=== PATIENT | male | born 1970 | race Caucasian/White ===

== ENCOUNTER 2021-11-26 17:19 | Outpatient (REF) | payer OTHER, SELFPAY ==
[2021-11-26 14:48] LABS: ALT 44 U/L (16-63); AST 25 U/L (15-37); Albumin 4.3 g/dL (3.4-5.0); Alkaline Phosphatase 92 U/L (46-116); Anion Gap 10.2 mmol/L (3-11); BUN 17 mg/dL (7-18); Bilirubin, Total 0.4 mg/dL (0.2-1.0); CO2 25.8 mmol/L (21.0-32.0); CREATININE 0.8 mg/dL (0.70-1.30); Calcium 9.3 mg/dL (8.5-10.1); Calculated LDL 155 mg/dL (<100); Chloride 103 mmol/L (98-107); Cholesterol 236 mg/dL (<200); Glucose 106 mg/dL (74-106); HDL Cholesterol 46 mg/dL (40-60); Potassium 4.3 mmol/L (3.5-5.1); Sodium 139 mmol/L (136-145); Total Protein 7.3 g/dL (6.4-8.2); Triglyceride 179 mg/dL (<150)
== END 2021-11-26 17:20 | disposition home or self-care (01) ==
LOC: NCHCN 17:19
PROVIDERS: Visit Provider Nurse Practitioner Family
DX: I10 Essential (primary) hypertension (principal); E78.5 Hyperlipidemia, unspecified
CPT/HCPCS: 80053; 80061

== ENCOUNTER 2024-06-12 13:51 | Outpatient (REF) | payer OTHER, SELFPAY ==
--- OUTSIDE RECORDS SUMMARY | 2024-06-12 13:52 | XMS_ITS | Referral Summary ---
Author Organization [facility] Address [address] [place] [address] Care Team Providers Care Shingles Roofer Name Role Phone Nila Moses MD Primary Care Provider [phone] Social History Tobacco Use Types Packs/Day Years Used Date Smoking Tobacco: Never Assessed Sex and Gender Information Value Date Recorded Sex Assigned at Not on file Legal Sex Male 18:25 EST Gender Identity Not on file Sexual Orientation Not on file Plan of Treatment Not on file Care Teams Shingles Roofer Relationship Specialty Start Date End Date Nila Moses MD [facility] [address] [address] PCP - General 05/13/15
--- OUTSIDE RECORDS SUMMARY | 2024-06-12 13:52 | XMS_ITS | Clinical Summary ---
Author Organization [facility] Address [address] [place] [address] Care Team Providers Care First Breaker Feeder Name Role Phone Nila Moses MD Primary Care Provider Social History Tobacco Use Types Packs/Day Years Used Date Smoking Tobacco: Never Assessed Sex and Gender Information Value Date Recorded Sex Assigned at Not on file Legal Sex Male 18:25 EST Gender Identity Not on file Sexual Orientation Not on file Plan of Treatment Health Maintenance Due Date Last Done Comments Hepatitis C Screen 1970 Hepatitis B Vaccine (1 of 3 - 19+ 3-dose series) 12/05 COVID-19 Vaccine ( season) 2024 Care Teams First Breaker Feeder Relationship Specialty Start Date End Date Nila Moses MD [address] [address] PCP - General 05/13/15
--- OUTSIDE RECORDS SUMMARY | 2024-06-12 13:53 | XMS_ITS ---
Author Organization Unknown Address [address] [place] [phone] Phone Care Team Providers Care Apprentice Photographer Name Role Phone LISSA Ortiz Attending Unavailable Results [facility]* - Greta ect Date/Time: 10/27/2021 17:30 [facility] ID: [id number] [address] [place] [address], [phone] LOINC: 25922-5 Test Value Unit Reference Range Code Code System Flag Tier- STAFF EXPOSURE 52301-3 LOINC SARS COV2 RNA: NEGATIVE REFERENCE RAN GE: NEGAT 68451-8 LOINC Social History Type Status Start Date End Date Code Code Syst em Smoking History Never smoker (Never Smoked) 498113829 SNOMED CT Sex Male Hospital Discharge Instructions Should you have any questions prior to discharge, please contact a member of your healthcare team. If you have left the hospital and have any questions, please contact your primary care physician. Reason For Referral No Data Found Allergies and Adverse Reactions Allergy Substance Reaction Severity Start Date Concern Status Co de Code System No Known Drug Allergies Active 862280795 SNOMED-CT Plan of Treatment No Data Found Encounters Encounter Diagnosis Start Date Code Code Sys tem Exposure to SARS-CoV-2 10/27/2021 478657953 SNOME D-CT Personal Care Team Section Performer Name Performer Role Active Date Inactive Da te
--- OUTSIDE RECORDS SUMMARY | 2024-06-12 13:53 | XMS_ITS | Encounter Summary ---
Author Organization [facility] Address [address] [place] [address] Care Team Providers Care Commercial Sales Representative Name Role Phone Unavailable Primary Care Provider Unavailabl e Encounter Details Date Type Department Care Team (Late st Contact Info) Description 12/02/2006 Before PRISM Converted Visit (Maple) [facility] - Maple conversion [address] [place] [address] Mg Solis MD [address] [place] [phone] Social History Tobacco Use Types Packs/Day Years Used Date Smoking Tobacco: Never Assessed Sex and Gender Information Value Date Recorded Sex Assigned at Not on file Legal Sex Male 18:25 EST Gender Identity Not on file Sexual Orientation Not on file documented as of this encounter Progress Notes * Mg Solis MD - 05/04/20092040 EST DIVISION OF OTOLARYNGOLOGY December 06, 2006 Dr. [facility] [address] [address] Dear Chas: Thank you for asking me to evaluate Mr. Preston in consultation regarding traumatic perforation of the left tympanic membrane secondary to over insertion of a Q-Tip. He reported acute pain with twodays of dizziness which has since resolved. He has persistent subjective hearing loss. No drainage or other complaints at the time. He is otherwise a very healthy nonsmoker.His only other complaint is ObstructiveSleep Apnea presently managed with nasal Cpap.This has not been well tolerated. Examination reveals a moderately large central perforation of the left tympanic membrane. The flap had actually extended along the lateral surface of the tympanic membrane, and I was able to reposition this more medially in combination debriding some accumulated debris. The middle ear was clear without infection and there was no obvious evidence of ossicular damage. His audiogram revealed a mild flat conductive hearing loss with a type B flat tympanogram with large volume consistent with perforation of the tympanic membrane. Concurrently I had Dr. Roberts evaluate this for future reference. Impression: 1. Traumatic perforation of left tympanic membrane. I am hopeful that this will close spontaneously. 2. Obtructive sleep Apnea Syndrome. Intolerant of Nasal Cpap. Treatment Plan: 1. Water protection. He has ear plugs for this. 2. Follow up visit with Dr. Roberts in three months. If the perforation does not close spontaneously, then tympanoplasty will be necessary and Dr. Roberts would make arrangements as indicated. 3. [place] appointment for evaluation surgical management ANTHONY. I appreciate the opportunity to participate in this patients care. Please let me know if you have any questions or concerns. Sincerely, Signed by Mg Solis MD 12/12/2006 09:14 Noemy Villa MD Mg Solis MD -Mg Solis MD -laila Job ID: [id number] Doc ID: [id number] cc: MD Nila Reyez MD documented in this encounter Plan of Treatment Not on file documented as of this encounter Visit Diagnoses Not on filedocumented in this encounter
--- OUTSIDE RECORDS SUMMARY | 2024-06-12 13:53 | XMS_ITS | Encounter Summary ---
Author Organization [facility] Address [address] [place] [address] Care Team Providers Care Construction Job Cost Estimator Name Role Phone Unavailable Primary Care Provider Unavailabl e Encounter Details Date Type Department Care Team (Late st Contact Info) Description 03/10/2007 10:13 EDT Hospital Encounter [facility] [address] [place] [address] Mg Solis MD [address] [place] [address] Social History Tobacco Use Types Packs/Day Years Used Date Smoking Tobacco: Never Assessed Sex and Gender Information Value Date Recorded Sex Assigned at Not on file Legal Sex Male 18:25 EST Gender Identity Not on file Sexual Orientation Not on file documented as of this encounter Plan of Treatment Not on file documented as of this encounter Visit Diagnoses Not on filedocumented in this encounter
--- OUTSIDE RECORDS SUMMARY | 2024-06-12 13:53 | XMS_ITS | Encounter Summary ---
Author Organization [facility] Address [address] [place] [address] Care Team Providers Care Sunday School Missionary Name Role Phone Unavailable Primary Care Provider Unavailabl e Encounter Details Date Type Department Care Team (Late st Contact Info) Description 01/20/2006 Results Only [facility] Employee [facility] - Main [address] [address] Health, Nurse Employee Social History Tobacco Use Types Packs/Day Years Used Date Smoking Tobacco: Never Assessed Sex and Gender Information Value Date Recorded Sex Assigned at Not on file Legal Sex Male 18:25 EST Gender Identity Not on file Sexual Orientation Not on file documented as of this encounter Plan of Treatment Not on file documented as of this encounter Procedures Procedure Name Priority Date/Time Associated Diagnosis Comments MUMPS AB Routine 01/20/2006 16:01 EDT MEASLES IGG AB Routine 01/20/2006 16:01 EDT RUBELLA IGG ANTIBODY Routine 01/20/2006 16:01 EDT documented in this encounter Results * RUBELLA IGG ANTIBODY (01/20/2006 16:01 EDT) Rubella IgG Ab Antibody detected Assayed utilizing the [facility] Immulite 2500. Values may vary with other methods. [facility] 01/20/2006 16:0 1 EDT 01/20/2006 16:06 EDT Nurse Employee Health CHEMISTRY & BLOOD GAS ORDE RABLES Final Result Performing Organization Address [facility] Co de Phone Number [facility] [address] [place] [address] * MUMPS AB (01/20/2006 16:01 EDT) Mumps Ab Antibody not detected Assayed by [facility] [place], [place] [facility] 01/20/2006 16:0 1 EDT 01/20/2006 16:[address] [facility] HISTORICAL LAB FOR SQ LOAD Final Result Performing Organization Address [facility] de Phone Number [facility] [address] [place] [address] * RUBEOLA IGG ANTIBODY (01/20/2006 16:01 EDT) Rubeola IgG Ab Antibody detected [facility] 01/20/2006 16:0 1 EDT 01/20/2006 16:06 EDT Nurse [facility] IMMUNOLOGY AND SEROLOGY OR DERABLES Final Result Performing Organization Address [facility] Co de Phone Number [facility] [address] [place] [address] documented in this encounter Visit Diagnoses Not on filedocumented in this encounter
--- OUTSIDE RECORDS SUMMARY | 2024-06-12 13:53 | XMS_ITS | Encounter Summary ---
Author Organization [facility] Address [address] [place] [place] [address] Care Team Providers Care Care Transition Mgr Name Role Phone Nila Moses MD Primary Care Provider [phone] Encounter Details Date Type Department Care Team (Late st Contact Info) Description 12/11/2019 Lab Requisition [facility] Pathology & Laboratory Medicine - [address] [address] Outr Resulting Lab, Provider Social History Tobacco Use Types Packs/Day [...] Procedure Name Priority Date/Time Associated Diagnosis Comments ZZCOVID-19 TEST [facility] PCR Today 12/11/2019 18:11 EDT COVID-19 TESTING Routine 12/11/2019 18:1 1 EDT documented in this encounter Results * COVID-19 TEST [facility] PCR (12/11/2019 18:11 EDT) Swab ENTIRE NASOPHARYNX / Unknown 12/11/2019 18:11 EDT 12/11/2019 21:54 EDT us Provider Outr Resulting Lab MICROBIOLOGY - GENER AL ORDERABLES Final Result [facility] [address] [place] [address] * COVID-19 TESTING (12/11/2019 18:11 EDT) COVID-19 rt-PCR Result Negative Negative 12/12/2019 12:21 EDT [facility] Comment: This test has not been FDA cleared or approved. This test has been authorized by FDA under an EUA for use by authorized laboratories. This test has been authorized only for detection of nucleic acid from 2019-nCoV, not for any other viruses or pathogens. This test is only authorized for the duration of the declaration that circumstances exist justifying the authorization of emergency use of in vitro diagnostic tests for detection and/or diagnosis of 2019-nCoV under section 564(b)(1) of Act, 21 U.S.C ?? 360bbb-3(b) (1), unless the authorization is terminated or revoked sooner. Negative results do not preclude 2019-nCoV infection and should not be used as the sole basis for treatment or other patient management decisions. Negative results must be combined with clinical observations, patient history, and epidemiological information. Performed on the needmadeher Fusion instrument Performing Lab [facility] 12/12/2019 12:21 EDT [facility] Swab 12/11/2019 18:1 1 EDT 12/11/2019 21:54 EDT us Provider Outr Resulting Lab MICROBIOLOGY - GENER AL ORDERABLES Final Result [facility] [address] [place] [address] documented in this encounter Visit Diagnoses Not on filedocumented in this encounter Care Teams Care Transition Mgr Relationship Specialty Start Date End Date Nila Moses MD [address] [address] PCP - General 05/13/15 documented as of this encounter
--- OUTSIDE RECORDS SUMMARY | 2024-06-12 13:53 | XMS_ITS | Encounter Summary ---
Author Organization [facility] Address [address] [place] [address] Care Team Providers Care Laser Beam Color Scanner Operator Name Role Phone Unavailable Primary Care Provider Unavailabl e Encounter Details Date Type Department Care Team (Late st Contact Info) Description 03/10/2007 Before PRISM Converted Visit (Maple) [facility] - Maple conversion [address] [place] [address] Mg Solis MD [address] [place] [phone] Social History Tobacco Use Types Packs/Day Years Used Date Smoking Tobacco: Never Assessed Sex and Gender Information Value Date Recorded Sex Assigned at Not on file Legal Sex Male 18:25 EST Gender Identity Not on file Sexual Orientation Not on file documented as of this encounter Progress Notes * Mg Solis MD - 05/07/2009 1022 EST DIVISION OF OTOLARYNGOLOGY PROGRESS/FOLLOWUP NOTE - 03/10/2007 PROBLEM Obstructive sleep apnea syndrome. 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 Severe obstructive sleep apnea was confirmed on a polysomnogram of October 05, 2001 revealing of 45 with documented oxygen desaturation. Failed trial of nasal CPAP. Associated symptoms of fragmented sleep with self-wakening, poor quality sleep feeling unrested, daytime hypersomnolence. Despite this, he remains gainfully employed and very active. Despite weight loss secondary to combined physical activity with dietary modification, he continuesto be symptomatic. He had a very adequate trial of nasal CPAP which was not tolerated. He is requesting consideration for surgical management. PAST MEDICAL HISTORY Nil chronic. FAMILY HISTORY Negative for snoring/ANTHONY. Occupation: Emergency room nurse. Nonsmoker. Alcohol: Minimal social. MEDICATIONS Ibuprofen p.r.n. REVIEW OF SYSTEMS Denies shortness of breath, coughing, or wheezing. No reflux symptoms. Frequent headaches. OBJECTIVE Sgakhe-wrvm-gttc-old gentleman in no acute distress. He appears normal weight for height. Both earsare clear. Nasal cavity: Central midline septum. Normal turbinates. Patent airway bilaterally. Oralcavity reveals underbite with high arch palate. Oropharynx is post-tonsillectomy status. The soft palate is low lying. Uvula elongated. Tongue is retrodisplaced. PROCEDURE Flexible fiberoptic nasolaryngoscopy performed through the right nares. The retropalatal space was narrowed. The pharynx revealed significant narrowing of the lateral wall secondary to very prominentposterior tonsillar pillars which are actually noted to extend into the hypopharynx. The tongue base was retrodisplaced with an estimated posterior airway space of 7 to 8 mm. Siu maneuver on the first effort demonstrated 100% obstruction with combined collapse of lateral oropharynx, hypopharynx,and tongue base touching the posterior pharyngeal wall. IMPRESSION Severe obstructive sleep apnea syndrome. This gentleman does not have any identifiable modifiable lifestyle issues including obesity, sedatives, or alcohol habits. Obstruction is identified at the level of the oropharynx secondary to low lying soft palate, elongated uvula as well as a prominent posterior tonsillar pillars. Also, hypopharynx with anatomical narrowing. 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 DISCUSSION/RECOMMENDATIONS I reviewed my impressions and findings. I have suggested consideration for a UPPP in combination with orthognathic surgery which may include mandibular or bimaxillary advancement surgery pending oralsurgery evaluation. TREATMENT DECISION I have suggested proceeding with a consultation with Dr. Avila regarding evaluation as follows: 1. Oral advancement appliance. 2. Mandibular versus bimaxillary advancement surgery. 3. Staged surgery, either UPPP followed by orthognathic surgery versus reverse order. 4. The patient will attend consultation with a copy of his polysomnogram report. Signed by Mg Solis MD 03/16/2007 13:09 Noemy Villa MD Mg Solis MD -Mg Solis MD -HAL Job ID: [id number] Doc ID: [id number] cc: MARCELINA Carvalho MD documented in this encounter Plan of Treatment Not on file documented as of this encounter Visit Diagnoses Not on filedocumented in this encounter
--- OUTSIDE RECORDS SUMMARY | 2024-06-12 13:53 | XMS_ITS ---
Author Organization Unknown Address [address] [place] [phone] Phone Care Team Providers Care Operating Room Technologist Name Role Phone LISSA Ortiz Attending Unavailable Results [facility] - Greta ect Date/Time: 06/28/2021 10:50 [facility] ID: [id number] [address] [place] [address], [id number] LOINC: 15956-7 Test Value Unit Reference Range Code Code System Flag Tier- STAFF EXPOSURE SARS COV2 RNA: NEGATIVE REFERENCE RAN GE: NEGAT 21955-6 LOINC Social History Type Status Start Date End Date Code Code Syst em Smoking History Never smoker (Never Smoked) 947531712 SNOMED CT Sex Male Hospital Discharge Instructions [...] Code System No Known Drug Allergies Active 922228673 SNOMED-CT Plan of Treatment No Data Found Encounters Encounter Diagnosis Start Date Code Code Sys tem Exposure to SARS-CoV-2 06/28/2021 333161021 SNOME D-CT Personal Care Team Section Performer Name Performer Role Active Date Inactive Da wendy
--- OUTSIDE RECORDS SUMMARY | 2024-06-12 13:54 | XMS_ITS ---
Author Organization Unknown Address [address] [place] [address] [phone] Phone Care Team Providers Care Technical Support Analyst Name Role Phone ALECRUZSUSHANT HERNANDEZ Attending Unavaila steffanie DOYLE Primary Unavailable Social History Type Status Start Date End Date Code Code Syst em Smoking History Never smoker (Never Smoked) 384760918 SNOMED CT Sex Male Hospital Discharge Instructions [...] Code System No Known Drug Allergies Active 189569389 SNOMED-CT Plan of Treatment No Data Found Encounters Encounter Diagnosis Start Date Code Code Sys tem Obstructive sleep apnea (adult) (pediatric) 12/17/2020 SNOMED-CT Personal Care Team Section Performer Name Performer Role Active Date Inactive Da wendy
--- OUTSIDE RECORDS SUMMARY | 2024-06-12 13:54 | XMS_ITS ---
Author Organization Unknown Address [address] [place] [phone] Phone Care Team Providers Care Radiator Tester Name Role Phone LATA Baeza Attending Unavailable CIARA HANK Primary Unavailable Results HEMOGLOBIN A1C* - Collect Da te/Time: 01/07/2023 07:52 [facility] ID: [id number] [address] [place] [address], [address] LOINC: 4548-4 Test Value Unit Reference Range Code Code System Flag Hgb A1c 5.4 % L=3.8 H=5.7 4548-4 LOINC MEAN BLOOD GLUCOSE 94 mg/dL 00573-1 LOINC Social History Type Status Start Date End Date Code Code Syst em Smoking History Never smoker (Never Smoked) 148094856 SNOMED CT Sex Male Hospital Discharge Instructions [...] Code System No Known Drug Allergies Active 367186300 SNOMED-CT Plan of Treatment No Data Found Encounters Encounter Diagnosis Start Date Code Code Sys tem Hyperlipidemia, unspecified 01/07/2023 SNOMED-CT Personal Care Team Section Performer Name Performer Role Active Date Inactive Da te
--- OUTSIDE RECORDS SUMMARY | 2024-06-12 13:54 | XMS_ITS ---
Author Organization Unknown Address [address] [place] [phone] Phone Care Team Providers Care Dust Operator Name Role Phone SAM Martins Attending Unavailable CIARA HANK Primary Unavailable Results LIPID PANEL* - Collect Date/ Time: 01/07/2023 07:52 [facility] ID: [id number] [address] [place] [address], [phone] LOINC: Test Value Unit Reference Range Code Code System Flag FASTING STATUS: FASTING CHOLESTEROL 200 mg/dL L=0 H=200 2093-3 LOINC TRIGLYCERIDES 169 mg/dL L=63 H=313 2571-8 LOINC HDL 43 mg/dL L=28 H=63 2085-9 LOINC non-HDL-C 157 mg/dL L=0 H=160 50451-8 LOINC LDL (CALC) 123 mg/dL L=0 H=130 43059-3 LOINC % HDL 21.5 % Chol/HDL Ratio 4.7 L=0.0 H=4.9 9830-1 LOINC CHD Relative Risk 0.9 x Avg L=0.0 H=1.0 LDL/HDL Ratio 2.9 L=0.0 H=3.5 45976-9 LOINC CHD Relative Risk. 0.8 x Avg L=0.0 H=1.0 COMPREHENSIVE METABOLIC PANE L (CMP) - Collect Date/Time: 01/07/2023 07:52 [facility] ID: [id number] [address] [place] [address], [phone] LOINC: 25654-9 Test Value Unit Reference Range Code Code System Flag GLUCOSE 95 mg/dL L=70 H=116 2345-7 LOINC BUN 16 mg/dL L=6 H=25 3094-0 LOINC CREATININE 0.82 mg/dL L=0.67 H=1.17 2160-0 LOINC SODIUM SERUM 139 mmol/L L=136 H=145 2951-2 LOINC POTASSIUM SERUM 4.1 mmol/L L=3.4 H=5.2 2823-3 LOINC CHLORIDE SERUM 104 mmol/L L=96 H=110 2075-0 LOINC CARBON DIOXIDE (CO2) 25 mmol/L L=22 H=34 2028-9 LOINC ANION GAP 10.3 mmol/L 72764-7 LOINC CALCIUM SERUM 9.0 mg/dL L=8.2 H=10.2 26608-4 LOINC BILIRUBIN TOTAL 0.4 mg/dL L=0.0 H=1.3 1975-2 LOINC ALK. PHOS. 79 U/L L=46 H=116 6768-6 LOINC SGOT (AST) 24 U/L L=15 H=37 1920-8 LOINC SGPT (ALT) 44 U/L L=12 H=78 1742-6 LOINC TOTAL PROTEIN 7.2 gm/dL L=6.0 H=8.0 2885-2 LOINC ALBUMIN 3.8 gm/dL L=3.4 H=5.0 1751-7 LOINC AGE 50 years eGFR (non-Afr.Amer.) 99 mL/min 36315-0 LOINC eGFR (Afr-Malawian) 120 mL/min 59727-4 LOINC CORRECTED Social History Type Status Start Date End Date Code Code Syst em Smoking History Never smoker (Never Smoked) 985831436 SNOMED CT Sex Male Hospital Discharge Instructions [...] Code System No Known Drug Allergies Active 853965101 SNOMED-CT Plan of Treatment No Data Found Encounters Encounter Diagnosis Start Date Code Code Sys tem Hyperlipidemia, unspecified 01/07/2023 SNOMED-CT Personal Care Team Section Performer Name Performer Role Active Date Inactive Da wendy
--- OUTSIDE RECORDS SUMMARY | 2024-06-12 13:54 | XMS_ITS ---
Author Organization Unknown Address [address] [place] [phone] Phone Care Team Providers Care Dedicated Driver Name Role Phone LISSA Ortiz Attending Unavailable CIARA HANK [facility] - Co llect Date/Time: 03/20/2023 18:14 [facility] ID: [id number] [address] [place], [place], [phone] LOINC: 58173-1 Test Value Unit Reference Range Code Code System Flag COVID POSITIVE Normal: Negative 53479-7 LOINC A SOURCE= Anterior nasal 36046-1 LOINC Tier- STAFF SYMPTOMS 77188-4 LOINC Social History Type Status Start Date End Date Code Code Syst em Smoking History Never smoker (Never Smoked) 146607241 SNOMED CT Sex Male Hospital Discharge Instructions [...] Code System No Known Drug Allergies Active 284190090 SNOMED-CT Plan of Treatment No Data Found Encounters Encounter Diagnosis Start Date Code Code Sys tem COVID-19 03/20/2023 158547104 SNOMED-CT Personal Care Team Section Performer Name Performer Role Active Date Inactive Da wendy
[2024-06-12 15:57] LABS: HCT 43.3 % (40.0-50.0); HGB 14.9 g/dL (13.5-17.5); MCH 29.2 pg (27.0-33.0); MCHC 34.4 % (32.0-36.0); MCV 85 fL (80-95); MPV 10.5 fL (8.0-11.0); Platelet Count 235 10^3/uL (130-400); RBC 5.11 10^6/uL (4.36-5.78); RDW 12.7 % (11.8-14.1); WBC 7.33 10^3/uL (4.4-10.8)
[2024-06-12 16:38] LABS: ALT 59 U/L (16-63); AST 55 U/L (15-37); Albumin 4.2 g/dL (3.4-5.0); Alkaline Phosphatase 76 U/L (46-116); Anion Gap 6.4 mmol/L (3-11); BUN 15 mg/dL (7-18); Bilirubin, Total 0.74 mg/dL (0.2-1.0); CO2 26.6 mmol/L (21.0-32.0); Calcium 9.3 mg/dL (8.5-10.1); Calculated LDL 116 mg/dL (<100); Chloride 104 mmol/L (98-107); Cholesterol 191 mg/dL (<200); Estimated GFR 91.12 (mL/min/1.73m2); Glucose 102 mg/dL (74-106); HDL Cholesterol 61 mg/dL (40-60); Potassium 4.2 mmol/L (3.5-5.1); Sodium 137 mmol/L (136-145); Total Protein 7.5 g/dL (6.4-8.2); Triglyceride 74 mg/dL (<150)
== END 2024-06-12 13:52 | disposition home or self-care (01) ==
LOC: NCHCN 13:51
PROVIDERS: PCP Family Medicine; Visit Provider Family Medicine
DX: I10 Essential (primary) hypertension (principal); E78.5 Hyperlipidemia, unspecified; R53.83 Other fatigue
CPT/HCPCS: 80053; 80061; 85027; 84443

== ENCOUNTER 2024-06-19 12:03 | Outpatient (REF) | payer OTHER, SELFPAY ==
--- OUTSIDE RECORDS SUMMARY | 2024-06-19 12:06 | XMS_ITS ---
Author Organization Unknown Address [address] [place] [address] [phone] Phone Care Team Providers Care Hooker Inspector Name Role Phone SAM Martins Attending Unavailable CIARA HANK Primary Unavailable Results LIPID PANEL* - Collect Date/ Time: 01/07/2023 07:52 [facility] ID: [id number] [address] [place] [address], [id number] LOINC: Test Value Unit Reference Range Code Code System Flag FASTING STATUS: FASTING CHOLESTEROL 200 mg/dL L=0 H=200 2093-3 LOINC TRIGLYCERIDES 169 mg/dL L=63 H=313 2571-8 LOINC HDL 43 mg/dL L=28 H=63 2085-9 LOINC non-HDL-C 157 mg/dL L=0 H=160 47791-2 LOINC LDL (CALC) 123 mg/dL L=0 H=130 97766-6 LOINC % HDL 21.5 % Chol/HDL Ratio 4.7 L=0.0 H=4.9 9830-1 LOINC CHD Relative Risk 0.9 x Avg L=0.0 H=1.0 LDL/HDL Ratio 2.9 L=0.0 H=3.5 24188-8 LOINC CHD Relative Risk. 0.8 x Avg L=0.0 H=1.0 COMPREHENSIVE METABOLIC PANE L (CMP) - Collect Date/Time: 01/07/2023 07:52 [facility] ID: [id number] [address] [place] [address], [id number] LOINC: 33418-1 Test Value Unit Reference Range Code Code [...] H=34 2028-9 LOINC ANION GAP 10.3 mmol/L 49410-3 LOINC CALCIUM SERUM 9.0 mg/dL L=8.2 H=10.2 26792-6 LOINC BILIRUBIN TOTAL 0.4 mg/dL L=0.0 H=1.3 1975-2 LOINC ALK. PHOS. 79 U/L L=46 H=116 6768-6 LOINC SGOT (AST) 24 U/L L=15 H=37 1920-8 LOINC SGPT (ALT) 44 U/L L=12 H=78 1742-6 LOINC TOTAL PROTEIN 7.2 gm/dL L=6.0 H=8.0 2885-2 LOINC ALBUMIN 3.8 gm/dL L=3.4 H=5.0 1751-7 LOINC AGE 52 years eGFR (non-Afr.Amer.) 99 mL/min 60596-5 LOINC eGFR (Afr-Armenian) 120 mL/min 60206-4 LOINC CORRECTED Social History Type Status Start Date End Date Code Code Syst em Smoking History Never smoker (Never Smoked) 325563991 SNOMED CT Sex Male Hospital Discharge Instructions [...] Code System No Known Drug Allergies Active 054607724 SNOMED-CT Plan of Treatment No Data Found Encounters Encounter Diagnosis Start Date Code Code Sys tem Hyperlipidemia, unspecified 01/07/2023 SNOMED-CT Personal Care Team Section Performer Name Performer Role Active Date Inactive Da te
--- OUTSIDE RECORDS SUMMARY | 2024-06-19 12:06 | XMS_ITS | Encounter Summary ---
Author Organization [facility] Address [address] [place] [address] Care Team Providers Care Personal Care Aid Name Role Phone Unavailable Primary Care Provider Unavailabl e Encounter Details Date Type Department Care Team (Late st Contact Info) Description 01/20/2006 Results Only [facility] Employee [facility] - Main [address] [address] Health, Nurse Employee Social History Tobacco Use [...] ORDE RABLES Final Result Performing Organization Address [facility] Co de Phone Number [facility] [address] [place] [address] * MUMPS AB (01/20/2006 16:01 EDT) Mumps Ab Antibody not detected Assayed by [facility], [place], [place] [facility] 01/20/2006 16:0 1 EDT 01/20/2006 16:06 EDT Nurse Employee [facility] HISTORICAL LAB FOR SQ LOAD Final Result Performing Organization Address [facility] de Phone Number [facility] [address] [place] [address] * RUBEOLA IGG ANTIBODY (01/20/2006 16:01 EDT) Rubeola IgG Ab Antibody detected [facility] 01/20/2006 16:0 1 EDT 01/20/2006 16:06 EDT Nurse [facility] IMMUNOLOGY AND SEROLOGY OR DERABLES Final Result Performing Organization Address [facility] Co de Phone Number [facility] [address] [place] [address] documented in this encounter Visit Diagnoses Not on filedocumented in this encounter
--- OUTSIDE RECORDS SUMMARY | 2024-06-19 12:06 | XMS_ITS ---
Author Organization Unknown Address [address] [place] [address] [phone] Phone Care Team Providers Care Wick Tender Name Role Phone LISSA Ortiz Attending Unavailable Results [facility]* - Greta ect Date/Time: 06/28/2021 10:50 [facility] ID: [id number] [address] [place] [address], [id number] LOINC: 41452-6 Test Value Unit Reference Range Code Code System Flag Tier- STAFF EXPOSURE SARS COV2 RNA: NEGATIVE REFERENCE RAN GE: NEGAT 16870-7 LOINC Social History Type Status Start Date End Date Code Code Syst em Smoking History Never smoker (Never Smoked) 649050930 SNOMED CT Sex Male Hospital Discharge Instructions [...] Code System No Known Drug Allergies Active 031483580 SNOMED-CT Plan of Treatment No Data Found Encounters Encounter Diagnosis Start Date Code Code Sys tem Exposure to SARS-CoV-2 06/28/2021 413872659 SNOME D-CT Personal Care Team Section Performer Name Performer Role Active Date Inactive Da te
--- OUTSIDE RECORDS SUMMARY | 2024-06-19 12:06 | XMS_ITS | Encounter Summary ---
Author Organization [facility] Address [address] [place] [address] Care Team Providers Care Supervisor Tower Name Role Phone Unavailable Primary Care Provider Unavailabl e Encounter Details Date Type Department Care Team (Late st Contact Info) Description 03/10/2007 10:13 EDT Hospital Encounter [facility] [address] [place] [address] Mg Solis MD [address] [place] [address] Social History Tobacco Use Types [...]
--- OUTSIDE RECORDS SUMMARY | 2024-06-19 12:06 | XMS_ITS | Encounter Summary ---
Author Organization [facility] Address [address] [place] [address] Care Team Providers Care In Flight Refueling System Repairer Name Role Phone Unavailable Primary Care Provider Unavailabl e Encounter Details Date Type Department Care Team (Late st Contact Info) Description 03/10/2007 Before PRISM Converted Visit (Maple) [facility] - [facility] conversion [address] [place] [address] Mg Solis MD [address] [place] [phone] Social History Tobacco Use Types Packs/Day Years [...] sleep apnea syndrome. 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 Severe obstructive sleep apnea was confirmed on [...] wheezing. No reflux symptoms. Frequent headaches. OBJECTIVE Vlwxpo-nplp-dcsj-old gentleman in no acute distress. He appears [...] MD -Mg Solis MD -HAL Job ID: [id number] Doc ID: [id number] cc: MARCELINA Carvalho MD documented in this encounter Plan of Treatment Not on file documented as of this encounter Visit Diagnoses Not on filedocumented in this encounter
--- OUTSIDE RECORDS SUMMARY | 2024-06-19 12:06 | XMS_ITS | Referral Summary ---
Author Organization [facility] Address [address] [place] [address] Care Team Providers Care Tape Maker Name Role Phone Nila Moses MD Primary Care Provider Social History Tobacco Use Types Packs/Day Years Used Date Smoking Tobacco: Never Assessed Sex and Gender Information Value Date Recorded Sex Assigned at Not on file Legal Sex Male 18:25 EST Gender Identity Not on file Sexual Orientation Not on file Plan of Treatment Not on file Care Teams Tape Maker Relationship Specialty Start Date End Date Nila Moses MD [facility] [address] [address] PCP - General 05/13/15
--- OUTSIDE RECORDS SUMMARY | 2024-06-19 12:06 | XMS_ITS | Encounter Summary ---
Author Organization [facility] Address [address] [place] [address] Care Team Providers Care Finisher Special Stocks Name Role Phone Unavailable Primary Care Provider Unavailabl e Encounter Details Date Type Department Care Team (Late st Contact Info) Description 12/02/2006 Before PRISM Converted Visit (Maple) [facility] - Maple conversion [address] [place] [address] Mg Solis MD [address] [place] [phone] Social History Tobacco Use Types Packs/Day Years [...] December 06, 2006 [facility] [address] [address] Dear Chas: Thank you for asking me [...] MD -Mg Solis MD -laila Job ID: [id number] Doc ID: [id number] cc: MD Nila Reyez MD documented in this encounter Plan of Treatment Not on file documented as of this encounter Visit Diagnoses Not on filedocumented in this encounter
--- OUTSIDE RECORDS SUMMARY | 2024-06-19 12:06 | XMS_ITS ---
Author Organization Unknown Address [address] [place] [phone] Phone Care Team Providers Care Business Technology Professor Name Role Phone LISSA Ortiz Attending Unavailable Results [facility]* - Greta ect Date/Time: 10/27/2021 17:30 [facility] ID: [id number] [address] [place], [place], [phone] LOINC: 64945-5 Test Value Unit Reference Range Code Code System Flag Tier- STAFF EXPOSURE 55421-3 LOINC SARS COV2 RNA: NEGATIVE REFERENCE RAN GE: NEGAT 18020-7 LOINC Social History Type Status Start Date End Date Code Code Syst em Smoking History Never smoker (Never Smoked) 849685271 SNOMED CT Sex Male Hospital Discharge Instructions [...] Code System No Known Drug Allergies Active 576282553 SNOMED-CT Plan of Treatment No Data Found Encounters Encounter Diagnosis Start Date Code Code Sys tem Exposure to SARS-CoV-2 10/27/2021 764819207 SNOME D-CT Personal Care Team Section Performer Name Performer Role Active Date Inactive Da te
--- OUTSIDE RECORDS SUMMARY | 2024-06-19 12:06 | XMS_ITS | Encounter Summary ---
Author Organization [facility] Address [address] [place] [address] Care Team Providers Care Employee Development Specialist Name Role Phone Nila Moses MD Primary Care Provider [phone] Encounter Details Date Type Department Care Team (Late st Contact Info) Description 12/11/2019 Lab Requisition [facility] Pathology & Laboratory Medicine - [address] [address] Outr Resulting Lab, Provider Social History Tobacco [...] MICROBIOLOGY - GENER AL ORDERABLES Final Result [facility] [address] [place] [address] * COVID-19 TESTING (12/11/2019 18:11 EDT) COVID-19 rt-PCR Result Negative Negative 12/12/2019 12:21 EDT [facility] Comment: This test has not [...] history, and epidemiological information. Performed on the Unifysquareher Fusion instrument Performing Lab [facility] 12/12/2019 12:21 EDT [facility] Swab 12/11/2019 18:1 1 EDT 12/11/2019 21:54 EDT us Provider Outr Resulting Lab MICROBIOLOGY - GENER AL ORDERABLES Final Result [facility] [address] [place] [address] documented in this encounter Visit Diagnoses Not on filedocumented in this encounter Care Teams Employee Development Specialist Relationship Specialty Start Date End Date Nila Moses MD [address] [address] PCP - General 05/13/15 documented as of this encounter
--- OUTSIDE RECORDS SUMMARY | 2024-06-19 12:06 | XMS_ITS | Clinical Summary ---
Author Organization [facility] Address [address] [place] [address] Care Team Providers Care Otr Flatbed Driver Name Role Phone Nila Moses MD Primary Care Provider [phone] Social History Tobacco Use Types Packs/Day Years [...] COVID-19 Vaccine ( season) 2024 Care Teams Otr Flatbed Driver Relationship Specialty Start Date End Date Nila Moses MD [address] [place] [address] PCP - General 05/13/15
--- OUTSIDE RECORDS SUMMARY | 2024-06-19 12:07 | XMS_ITS ---
Author Organization Unknown Address [address] [place] [phone] Phone Care Team Providers Care Web Site Designer Name Role Phone LISSA Ortiz Attending Unavailable CIARA HANK Primary Unavailable [facility] - Co llect Date/Time: 03/20/2023 18:14 [facility] ID: [id number] [address] [place] [address], [id number] LOINC: 80693-8 Test Value Unit Reference Range Code Code System Flag COVID POSITIVE Normal: Negative 03422-1 LOINC A SOURCE= Anterior nasal 73044-1 LOINC Tier- STAFF SYMPTOMS 58702-0 LOINC Social History Type Status Start Date End Date Code Code Syst em Smoking History Never smoker (Never Smoked) 425827717 SNOMED CT Sex Male Hospital Discharge Instructions [...] Code System No Known Drug Allergies Active 404965572 SNOMED-CT Plan of Treatment No Data Found Encounters Encounter Diagnosis Start Date Code Code Sys tem COVID-19 03/20/2023 669053990 SNOMED-CT Personal Care Team Section Performer Name Performer Role Active Date Inactive Da wendy
--- OUTSIDE RECORDS SUMMARY | 2024-06-19 12:07 | XMS_ITS ---
Author Organization Unknown Address [address] [place] [phone] Phone Care Team Providers Care Automobile Wrecker Name Role Phone LATA Baeza Attending Unavailable CIARA HANK Primary Unavailable Results HEMOGLOBIN A1C* - Collect Da te/Time: 01/07/2023 07:52 [facility] ID: [id number] [address] [place] [address], [address] LOINC: 4548-4 Test Value Unit Reference Range Code Code System Flag Hgb A1c 5.4 % L=3.8 H=5.7 4548-4 LOINC MEAN BLOOD GLUCOSE 94 mg/dL 91385-3 LOINC Social History Type Status Start Date End Date Code Code Syst em Smoking History Never smoker (Never Smoked) 925899758 SNOMED CT Sex Male Hospital Discharge Instructions [...] Code System No Known Drug Allergies Active 228906357 SNOMED-CT Plan of Treatment No Data Found Encounters Encounter Diagnosis Start Date Code Code Sys tem Hyperlipidemia, unspecified 01/07/2023 SNOMED-CT Personal Care Team Section Performer Name Performer Role Active Date Inactive Da te
--- OUTSIDE RECORDS SUMMARY | 2024-06-19 12:07 | XMS_ITS ---
Author Organization Unknown Address [address] [place] [phone] Phone Care Team Providers Care Manager Travel Name Role Phone ALECRUZSUSHANT HERNANDEZ Attending Unavaila steffanie DOYLE Primary Unavailable Social History Type Status Start Date End Date Code Code Syst em Smoking History Never smoker (Never Smoked) 997135787 SNOMED CT Sex Male Hospital Discharge Instructions [...] Code System No Known Drug Allergies Active 624744794 SNOMED-CT Plan of Treatment No Data Found Encounters Encounter Diagnosis Start Date Code Code Sys tem Obstructive sleep apnea (adult) (pediatric) 12/17/2020 SNOMED-CT Personal Care Team Section Performer Name Performer Role Active Date Inactive Da wendy
--- OUTSIDE RECORDS SUMMARY | 2024-06-19 12:08 | XMS_ITS ---
Author Organization Unknown Address [address] [place] [phone] Phone Care Team Providers Care Leadership Intern Name Role Phone BEATRIZ VALDIVIA Attending Unavailable LOYDA DOYLE Primary Unavailable Social History Type Status Start Date End Date Code Code Syst em Smoking History Never smoker (Never Smoked) 523340872 SNOMED CT Sex Male Hospital Discharge Instructions [...] Code System No Known Drug Allergies Active 941084708 SNOMED-CT Plan of Treatment No Data Found Encounters Encounter Diagnosis Start Date Code Code Sys tem Follow-up consultation 01/08/2021 811535258 SNOME D-CT Personal Care Team Section Performer Name Performer Role Active Date Inactive Da wendy
--- OUTSIDE RECORDS SUMMARY | 2024-06-19 12:08 | XMS_ITS ---
Author Organization Unknown Address [address] [place] [address] [phone] Phone Care Team Providers Care Ancillary Services Manager Name Role Phone LISSA QUICK MD Attending Unavailable LOYDA DOYLE Primary Unavailable [facility] Colle ct Date/Time: 02/02/2021 09:34 [facility] ID: [id number] [address] [place] [address], [address] LOINC: 65774-6 Test Value Unit Reference Range Code Code System Flag SOURCE= Anterior nasal Tier- [facility] STAFF SARS COV2 RNA: NEGATIVE REFERENCE RAN GE: NEGAT 64409-0 LOINC Social History Type Status Start Date End Date Code Code Syst em Smoking History Never smoker (Never Smoked) 684887576 SNOMED CT Sex Male Hospital Discharge Instructions [...] Code System No Known Drug Allergies Active 824961164 SNOMED-CT Plan of Treatment No Data Found Encounters Encounter Diagnosis Start Date Code Code Sys tem Exposure to SARS-CoV-2 02/02/2021 203386737 SNOME D-CT Personal Care Team Section Performer Name Performer Role Active Date Inactive Da wendy
[2024-06-20 08:27] LABS: HBs Antibody, Quant >1000.0 mIU/mL (See Note); Hepatitis B Surface Ab Positive (See Note)
[2024-06-20 08:45] LABS: Hepatitis C Ab w Rflx HCV PCR Negative (Negative)
[2024-06-20 08:58] LABS: HIV-1/2 Ag & Ab Screen Negative (Negative)
[2024-06-21 10:12] LABS: Syphilis Serology (RPR) Negative (Negative)
== END 2024-06-19 12:04 | disposition home or self-care (01) ==
LOC: NCHCN 12:03
PROVIDERS: PCP Family Medicine; Visit Provider Family Medicine
DX: I10 Essential (primary) hypertension (principal); E78.5 Hyperlipidemia, unspecified; R53.83 Other fatigue
CPT/HCPCS: 86706; 86803; 87389; 87491; 87591; 86592